=== PATIENT | male | born 1950 | race Caucasian/White ===

== ENCOUNTER 2017-12-03 13:11 | Inpatient (IN) | payer MEDICARE, MEDICAID ==
[~2017-12-03] VITALS: Ht 180.3 cm; Wt 89.3 kg
[2017-12-03 13:51] LABS: Basophils # (auto) 0 uL; Basophils % (auto) 0.7 % (0.0-2.0); Eosinophils # (auto) 0 uL; Eosinophils % (auto) 0.6 % (0.0-7.0); Hematocrit 47.1 % (41.0-53.0); Hemoglobin 15.5 g/dL (13.5-17.5); Lymphocytes # (auto) 0.9 uL; Lymphocytes % (auto) 16.7 % (10.0-50.0); Mean Corpuscular Hemoglobin 30.6 pg (28.0-32.0); Mean Corpuscular Hgb Conc. 32.9 g/dL (32.0-36.0); Mean Corpuscular Volume 92.8 fL (80.0-100.0); Monocytes # (auto) 0.7 uL; Monocytes % (auto) 13.5 % (0.0-12.0); Neutrophils # (auto) 3.7 uL; Neutrophils % (auto) 68.5 % (37.0-80.0); Nucleated Red Blood Cells % 0.6 %; Platelet Count (auto) 133 10^3/uL (140-450); Red Blood Cells 5.08 10^6/uL (4.5-5.90); White Blood Cell 5.4 10^3/uL (4.4-10.8)
[2017-12-03 14:08] LABS: Alanine Aminotransferase 31 U/L (16-61); Albumin 3.1 g/dL (3.4-5.0); Anion Gap 1 (5-15); BUN/Creatinine Ratio 20.7; Blood Urea Nitrogen 29 mg/dL (7-18); Carbon Dioxide 29 mmol/L (21-32); Chloride 107 mmol/L (98-107); GFR African American 65 mL/min; GFR Non-African American 54 mL/min; Glucose 92 mg/dL (74-106); Magnesium 2.2 mg/dL (1.6-2.6); Sodium 137 mmol/L (136-145)
[2017-12-03 14:23] LABS: Alkaline Phosphatase 117 U/L (45-117); Aspartate Aminotransferase 25 U/L (15-37); Bilirubin, Total 0.2 mg/dL (0.2-1.0); Total Protein 7.5 g/dL (6.4-8.2)
[2017-12-03] MEDS ORDERED: cefTRIAXone 1GM/10ml IVPUSH 10 ML IV ONE (16:00)
[2017-12-03] MEDS ORDERED: ACETAMINOPHEN 500 MG TAB PO PRN (16:00)
[2017-12-03] MEDS ORDERED: OSELTAMIVIR 75 MG CAP PO ONE (16:00)
[2017-12-03] MEDS ORDERED: THIAMINE HCL 100 MG/ML 2ML VIAL IV ONE (16:00)
[2017-12-03] MEDS ORDERED: MULTIPLE VITAMIN TAB PO ONE (16:00)
[2017-12-03] MEDS ORDERED: ALBUTEROL SULF 2.5 MG/0.5ML(0.5%) NEB SOLN NEB ONE (16:00)
[2017-12-03] MEDS ORDERED: FUROSEMIDE 40 MG/4 ML VIAL IV ONE (16:00)
[2017-12-03] MEDS ORDERED: IPRATROPIUM BROM 0.5 MG/2.5ML INH SOL NEB ONE (16:00)
[2017-12-03] MEDS ORDERED: ONDANSETRON HCL 4 MG/2 ML VIAL IV PRN (16:15)
[2017-12-03] MEDS ORDERED: HYDROcodone-ACET 5/325MG TAB PO PRN (16:15)
[2017-12-03] MEDS: THIAMINE HCL 100 MG TAB PO SCH (16:45)
[2017-12-03] MEDS ORDERED: OSELTAMIVIR 30 MG CAP PO ONE (16:45)
[2017-12-03] MEDS: SODIUM CHLORIDE 0.9% 1,000 ML IV SCH (17:23)
[2017-12-03] MEDS ORDERED: AZITHROMYCIN 500MG/ 250ML 250 ML IV ONE (17:30)
[2017-12-03] MEDS: ALBUTEROL SULF 2.5 MG/0.5ML(0.5%) NEB SOLN NEB SCH (18:42)
[2017-12-03] MEDS: IPRATROPIUM BROM 0.5 MG/2.5ML INH SOL NEB SCH (18:42)
[2017-12-03] MEDS ORDERED: OSELTAMIVIR 30 MG CAP PO SCH (22:00)
[2017-12-03 23:48] LABS: Urine Bacteria FEW /hpf (None Seen); Urine Blood 1+ /uL (Negative); Urine Specific Gravity 1.015 (1.001-1.035); Urine WBC 165 /hpf (0 - 3)
[2017-12-04] MEDS: SODIUM CHLORIDE 0.9% 1,000 ML IV SCH ×3 (00:03→12:00)
[2017-12-04] MEDS: ALBUTEROL SULF 2.5 MG/0.5ML(0.5%) NEB SOLN NEB SCH ×4 (06:26→19:06)
[2017-12-04] MEDS: IPRATROPIUM BROM 0.5 MG/2.5ML INH SOL NEB SCH ×4 (06:26→19:06)
[2017-12-04 06:56] LABS: Calcium 9.3 mg/dL (8.5-10.1); Potassium 4.5 mmol/L (3.5-5.1)
[2017-12-04 06:59] LABS: BUN/Creatinine Ratio 17.3
[2017-12-04 07:09] LABS: Basophils # (auto) 0 uL; Basophils % (auto) 0.3 % (0.0-2.0); Eosinophils # (auto) 0 uL; Eosinophils % (auto) 0.1 % (0.0-7.0); Hematocrit 45.2 % (41.0-53.0); Hemoglobin 15.1 g/dL (13.5-17.5); Lymphocytes % (auto) 27.2 % (10.0-50.0); Mean Corpuscular Hemoglobin 30.6 pg (28.0-32.0); Mean Corpuscular Hgb Conc. 33.4 g/dL (32.0-36.0); Mean Corpuscular Volume 91.6 fL (80.0-100.0); Monocytes # (auto) 0.5 uL; Monocytes % (auto) 13.9 % (0.0-12.0); Neutrophils # (auto) 2.1 uL; Neutrophils % (auto) 58.5 % (37.0-80.0); Nucleated Red Blood Cells % 0.1 %; Platelet Count (auto) 126 10^3/uL (140-450); Red Blood Cells 4.93 10^6/uL (4.5-5.90); Red Cell Distribution Width 14.8 % (11.8-14.3); White Blood Cell 3.6 10^3/uL (4.4-10.8)
[2017-12-04 09:00] VITALS: BP 144/72
[2017-12-04 09:20] VITALS: BP 144/72
[2017-12-04] MEDS ORDERED: THIAMINE HCL 100 MG/ML 2ML VIAL IV SCH (10:00)
[2017-12-04] MEDS ORDERED: amLODIPine BESYLATE 5 MG TAB PO SCH (10:00)
[2017-12-04] MEDS: cefTRIAXone 1GM/10ml IVPUSH 10 ML IV SCH (10:23)
[2017-12-04] MEDS: AZITHROMYCIN 500MG/ 250ML 250 ML IV SCH (10:23)
[2017-12-04] MEDS: MULTIPLE VITAMIN TAB PO SCH (10:23)
[2017-12-04] MEDS: THIAMINE HCL 100 MG TAB PO SCH (10:24)
[2017-12-04 13:00] VITALS: BP 120/74
[2017-12-04 16:36] VITALS: BP 120/74
[2017-12-04 19:16] LABS: Alcohol, Urine < 3.0 mg/dL (0-5); Amphetamine Screen, Urine NEGATIVE (NEGATIVE); Barbiturate Scree,Urine NEGATIVE (NEGATIVE); Cannabinoid Screen, Urine NEGATIVE (NEGATIVE); Cocaine Screen, Urine NEGATIVE (NEGATIVE); Opiate Scree,Urine NEGATIVE (NEGATIVE); Phencyclidine Screen, Urine NEGATIVE (NEGATIVE)
[2017-12-04 19:44] LABS: Benzodiazephine Screen, Urine POSITIVE (NEGATIVE)
[2017-12-04 20:00] VITALS: BP 108/73
[2017-12-04 22:00] VITALS: BP 108/73
[2017-12-05] MEDS: IPRATROPIUM BROM 0.5 MG/2.5ML INH SOL NEB SCH ×4 (00:43→19:52)
[2017-12-05] MEDS: ALBUTEROL SULF 2.5 MG/0.5ML(0.5%) NEB SOLN NEB SCH ×4 (00:43→19:52)
[2017-12-05] MEDS: SODIUM CHLORIDE 0.9% 1,000 ML IV SCH ×3 (00:59→14:49)
[2017-12-05 05:00] VITALS: BP 130/81
[2017-12-05] MEDS: cefTRIAXone 1GM/10ml IVPUSH 10 ML IV SCH (08:55)
[2017-12-05] MEDS: MULTIPLE VITAMIN TAB PO SCH (09:27)
[2017-12-05] MEDS: THIAMINE HCL 100 MG TAB PO SCH (09:27)
[2017-12-05] MEDS: amLODIPine BESYLATE 5 MG TAB PO SCH (09:29)
[2017-12-05] MEDS: AZITHROMYCIN 500MG/ 250ML 250 ML IV SCH (09:30)
[2017-12-05 12:29] VITALS: BP 124/76
[2017-12-05] MEDS ORDERED: AMLO10TA2 PO (14:44)
[2017-12-05] MEDS ORDERED: LISI10TA6 PO (14:44)
[2017-12-05] MEDS ORDERED: TAMS0.4C36 PO (14:44)
[2017-12-05 16:22] VITALS: BP 112/73
[2017-12-05] MEDS ORDERED: TAMSULOSIN HYDROCHLORIDE 0.4 MG CAP PO SCH (18:00)
[2017-12-05 20:00] VITALS: BP 111/76
[2017-12-05 22:00] VITALS: BP 111/76
[2017-12-06] MEDS: IPRATROPIUM BROM 0.5 MG/2.5ML INH SOL NEB SCH ×3 (01:19→13:46)
[2017-12-06] MEDS: ALBUTEROL SULF 2.5 MG/0.5ML(0.5%) NEB SOLN NEB SCH ×3 (01:19→13:46)
[2017-12-06] MEDS: SODIUM CHLORIDE 0.9% 1,000 ML IV SCH ×2 (04:10→17:20)
[2017-12-06 05:09] VITALS: BP 105/79
[2017-12-06 08:35] VITALS: BP 128/83
[2017-12-06] MEDS: MULTIPLE VITAMIN TAB PO SCH (10:17)
[2017-12-06] MEDS: cefTRIAXone 1GM/10ml IVPUSH 10 ML IV SCH (10:17)
[2017-12-06] MEDS: THIAMINE HCL 100 MG TAB PO SCH (10:17)
[2017-12-06] MEDS: AZITHROMYCIN 500MG/ 250ML 250 ML IV SCH (10:18)
[2017-12-06] MEDS: amLODIPine BESYLATE 5 MG TAB PO SCH (10:18)
[2017-12-06 12:06] VITALS: BP 120/79
[2017-12-06 15:26] VITALS: BP 128/83
== END 2017-12-06 17:30 | disposition home or self-care (01) | DRG 871 ==
LOC: ER 13:11 → EDUNIT# 13:11 → EDBD 13:11 → OVERFLOW 13:12 → WEST WING 12-04 08:33
PROVIDERS: ADMIT Internal Medicine; ATTEND Internal Medicine
DX: A41.9 Sepsis, unspecified organism (principal); J96.00 Acute respiratory failure, unspecified whether with hypoxia or hypercapnia; N17.0 Acute kidney failure with tubular necrosis; G93.41 Metabolic encephalopathy; J18.9 Pneumonia, unspecified organism; E86.0 Dehydration; J44.0 Chronic obstructive pulmonary disease with (acute) lower respiratory infection; J44.1 Chronic obstructive pulmonary disease with (acute) exacerbation; N39.0 Urinary tract infection, site not specified; F17.210 Nicotine dependence, cigarettes, uncomplicated; I10 Essential (primary) hypertension; N40.0 Benign prostatic hyperplasia without lower urinary tract symptoms; Z87.442 Personal history of urinary calculi; Z90.49 Acquired absence of other specified parts of digestive tract
CPT/HCPCS: 36415; 36600; 70450; 71045; 80048; 80053; 80307; 81001; 82805; 83735; 83880; 84484; 85025; 87040; 87070; 87077; 87086; 87088; 87186; 87205; 87804; 93005; 94640; 96361; 96365; 96375; 99291; G9035